=== PATIENT | female | born 1935 | race Caucasian/White ===

== ENCOUNTER 2020-12-09 11:43 | Inpatient (IN) ==
[2020-12-09] MEDS ORDERED: Naloxone 0.4 MG/ML INJ IVP PRN (18:30)
[2020-12-09] MEDS ORDERED: Ondansetron 4 MG/2 ML VIAL IVP PRN (18:30)
[2020-12-09] MEDS: Heparin 25,000UNIT/250ML 1/2NS 25,000 UNIT/250 ML IV.SOLN IVC SCH (19:00)
[2020-12-09] MEDS: Ipratropium 1 PUFF INHALER IH SCH ×2 (20:03→23:17)
[2020-12-09] MEDS ORDERED: *HR* Heparin 5,000 UNIT/ML VIAL IVP PRN ×2 (20:19)
[2020-12-09] MEDS ORDERED: Perflutren Lipid Microsphere 1.3 ML in 0.9 % Sodium Chloride 8.7 ML IVP PRN (20:27)
[2020-12-09 21:15] LABS: Basophils % 0.1 %; Hematocrit 27.7 % (35.3-44.9); Hemoglobin 8.5 g/dL (11.5-15.4); Immature Granulocytes % 0.8 % (0-4); Lymphocytes % 9.9 %; Mean Corpuscular HGB Conc 30.7 g/dL (31.6-35.5); Mean Corpuscular Hemoglobin 28.3 pg (28.0-33.3); Mean Corpuscular Volume 92.3 fL (83.0-100.0); Mean Platelet Volume 10.7 fL (9.4-12.4); Monocytes # 0.3 K/mcL (0.0-1.3); Monocytes % 1.5 %; Neutrophils # 17.8 K/mcL (1.6-8.9); Platelet Count 215 K/mcL (140-400); Red Cell Distribution Width 17.3 % (11.5-14.5); Segmented Neutrophils % 87.7 %; White Blood Count 20.3 K/mcL (4.3-11.1)
[2020-12-09 21:37] LABS: Calcium 8.7 mg/dL (8.6-10.3); Potassium 3.8 mEq/L (3.5-5.1)
[2020-12-09 21:42] LABS: Platelet Estimate Normal (Normal)
[2020-12-09 21:43] LABS: Hypochromasia Present (Not Present)
[2020-12-09 21:48] LABS: Troponin I 2.12 ng/mL (< 0.04)
[2020-12-10] MEDS: Ipratropium 1 PUFF INHALER IH SCH ×6 (04:55→23:53)
[2020-12-10 05:58] LABS: Hemoglobin 8.4 g/dL (11.5-15.4); Immature Granulocytes % 1.2 % (0-4); Lymphocytes # 1.9 K/mcL (0.6-4.6); Lymphocytes % 8.2 %; Mean Corpuscular Hemoglobin 27.5 pg (28.0-33.3); Mean Corpuscular Volume 94.8 fL (83.0-100.0); Mean Platelet Volume 10.8 fL (9.4-12.4); Monocytes # 0.2 K/mcL (0.0-1.3); Neutrophils # 20.2 K/mcL (1.6-8.9); Platelet Count 206 K/mcL (140-400); Red Blood Count 3.06 M/mcL (3.82-4.97); Red Cell Distribution Width 17.4 % (11.5-14.5); Segmented Neutrophils % 89.6 %; White Blood Count 22.6 K/mcL (4.3-11.1)
[2020-12-10 06:44] LABS: Ferritin 143 ng/mL (10-120)
[2020-12-10 07:03] LABS: Alanine Aminotransferase < 3 Units/L (7-52); Albumin 3.3 g/dL (3.5-5.7); Alkaline Phosphatase 66 Units/L (34-104); Aspartate Amino Transferase 16 Units/L (13-39); BUN/Creatinine Ratio 17 (6-26); Bilirubin,Indirect 0.3 mg/dL (0.0-1.0); Bilirubin,Total 0.3 mg/dL (0.3-1.0); Blood Urea Nitrogen 39 mg/dL (8-23); Calcium 8.6 mg/dL (8.6-10.3); Carbon Dioxide 17 mEq/L (23-29); Chloride 108 mEq/L (98-107); Globulin 3.4 g/dL (2.4-3.5); Glucose 134 mg/dL (70-105); Lactate Dehydrogenase 186 Units/L (140-271); Osmolality,Calculated 299 (280-300); Potassium 4.1 mEq/L (3.5-5.1); Sodium 139 mEq/L (136-145); Total Protein 6.7 g/dL (6.4-8.9); eGFR For African Americans 24 (> 60); eGFR For Non-African Americans 20 (> 60)
[2020-12-10] MEDS ORDERED: 0.9 % Sodium Chloride 1,000 ML IVC SCH (08:00)
[2020-12-10] MEDS ORDERED: levoFLOXacin 750 MG/150 ML 750 MG/150 ML BAG IVPB SCH (09:00)
[2020-12-10 09:04] LABS: C-Reactive Protein 152 mg/L (Less than 10); Troponin I 1.21 ng/mL (< 0.04)
[2020-12-10] MEDS: Carbidopa/Levodopa 25/100 TABLET PO SCH ×3 (14:14→21:19)
[2020-12-10] MEDS: Aspirin Enteric Coated 81 MG Tablet PO SCH (17:12)
[2020-12-10] MEDS: Mirtazapine 15 MG TABLET PO SCH (21:18)
[2020-12-10] MEDS: Gabapentin 300 MG CAPSULE PO SCH (21:18)
[2020-12-11] MEDS: Ipratropium 1 PUFF INHALER IH SCH ×5 (04:25→21:00)
[2020-12-11 07:21] LABS: Hematocrit 25.3 % (35.3-44.9); Mean Corpuscular HGB Conc 31.6 g/dL (31.6-35.5); Mean Corpuscular Hemoglobin 28.4 pg (28.0-33.3); Mean Corpuscular Volume 89.7 fL (83.0-100.0); Mean Platelet Volume 10.7 fL (9.4-12.4); Platelet Count 208 K/mcL (140-400); Red Blood Count 2.82 M/mcL (3.82-4.97); Red Cell Distribution Width 17.1 % (11.5-14.5); White Blood Count 16.5 K/mcL (4.3-11.1)
[2020-12-11 07:42] LABS: Potassium 4.2 mEq/L (3.5-5.1)
[2020-12-11] MEDS: polyethylene glycoL 3350 17 GM POWD.PACK PO SCH (08:21)
[2020-12-11] MEDS: Aspirin Enteric Coated 81 MG Tablet PO SCH (08:22)
[2020-12-11] MEDS: allopurinoL 100 MG TABLET PO SCH (08:22)
[2020-12-11] MEDS: Zinc Sulfate 220 MG CAPSULE PO SCH (08:22)
[2020-12-11] MEDS: Ascorbic Acid 500 MG TABLET PO SCH (08:22)
[2020-12-11] MEDS: Cholecalciferol (D-3) 1,000 UNIT (25MCG) TABLET PO SCH (08:22)
[2020-12-11] MEDS: Iron Polysaccharide Complex 150 MG CAPSULE PO SCH (08:22)
[2020-12-11] MEDS: Cyanocobalamin (B-12) 1,000 MCG TABLET PO SCH (08:22)
[2020-12-11] MEDS: Sennosides/Docusate Sodium TABLET PO SCH (08:22)
[2020-12-11] MEDS: Carbidopa/Levodopa 25/100 TABLET PO SCH ×4 (08:22→21:54)
[2020-12-11 09:01] LABS: Calcium 8.5 mg/dL (8.6-10.3)
[2020-12-11] MEDS ORDERED: Sodium Bicarbonate 150 MEQ in Water for inj. (sterile) 1,000 ML IVC SCH (10:45)
[2020-12-11] MEDS: Acetaminophen 325 MG TABLET PO PRN (11:44)
[2020-12-11] MEDS: Mirtazapine 15 MG TABLET PO SCH (21:53)
[2020-12-11] MEDS: Gabapentin 300 MG CAPSULE PO SCH (21:53)
[2020-12-11] MEDS: Heparin 25,000UNIT/250ML 1/2NS 25,000 UNIT/250 ML IV.SOLN IVC SCH (21:54)
[2020-12-12] MEDS: Ipratropium 1 PUFF INHALER IH SCH ×6 (00:08→20:44)
[2020-12-12 06:13] LABS: Hematocrit 24.7 % (35.3-44.9); Hemoglobin 7.8 g/dL (11.5-15.4); Immature Granulocytes % 0.5 % (0-4); Lymphocytes % 10.8 %; Mean Corpuscular HGB Conc 31.6 g/dL (31.6-35.5); Mean Corpuscular Hemoglobin 28.3 pg (28.0-33.3); Mean Corpuscular Volume 89.5 fL (83.0-100.0); Mean Platelet Volume 11.3 fL (9.4-12.4); Monocytes # 0.2 K/mcL (0.0-1.3); Monocytes % 2.5 %; Neutrophils # 8.2 K/mcL (1.6-8.9); Platelet Count 181 K/mcL (140-400); Red Blood Count 2.76 M/mcL (3.82-4.97); Red Cell Distribution Width 17.1 % (11.5-14.5); Segmented Neutrophils % 86.2 %; White Blood Count 9.5 K/mcL (4.3-11.1)
[2020-12-12 06:52] LABS: Alanine Aminotransferase < 3 Units/L (7-52); Albumin 3.1 g/dL (3.5-5.7); Albumin/Globulin Ratio 0.9 (1.1-2.2); Alkaline Phosphatase 57 Units/L (34-104); Aspartate Amino Transferase 38 Units/L (13-39); BUN/Creatinine Ratio 26 (6-26); Bilirubin,Total 0.2 mg/dL (0.3-1.0); Blood Urea Nitrogen 62 mg/dL (8-23); C-Reactive Protein 147 mg/L (Less than 10); Calcium 8.7 mg/dL (8.6-10.3); Carbon Dioxide 23 mEq/L (23-29); Chloride 104 mEq/L (98-107); Ferritin 304 ng/mL (10-120); Globulin 3.4 g/dL (2.4-3.5); Glucose 95 mg/dL (70-105); Lactate Dehydrogenase 284 Units/L (140-271); Osmolality,Calculated 303 (280-300); Potassium 4.2 mEq/L (3.5-5.1); Sodium 138 mEq/L (136-145); Total Protein 6.5 g/dL (6.4-8.9); eGFR For African Americans 23 (> 60); eGFR For Non-African Americans 19 (> 60)
[2020-12-12] MEDS: allopurinoL 100 MG TABLET PO SCH (07:53)
[2020-12-12] MEDS: Zinc Sulfate 220 MG CAPSULE PO SCH (07:53)
[2020-12-12] MEDS: Ascorbic Acid 500 MG TABLET PO SCH (07:53)
[2020-12-12] MEDS: Sennosides/Docusate Sodium TABLET PO SCH (07:53)
[2020-12-12] MEDS: Iron Polysaccharide Complex 150 MG CAPSULE PO SCH (07:53)
[2020-12-12] MEDS: Cyanocobalamin (B-12) 1,000 MCG TABLET PO SCH (07:53)
[2020-12-12] MEDS: Aspirin Enteric Coated 81 MG Tablet PO SCH (07:53)
[2020-12-12] MEDS: Carbidopa/Levodopa 25/100 TABLET PO SCH ×4 (07:53→20:49)
[2020-12-12] MEDS: polyethylene glycoL 3350 17 GM POWD.PACK PO SCH (08:00)
[2020-12-12] MEDS: Cholecalciferol (D-3) 1,000 UNIT (25MCG) TABLET PO SCH (08:01)
[2020-12-12] MEDS ORDERED: levoFLOXacin 500 MG/100 ML 500 MG/100 ML BAG IVPB SCH (09:00)
[2020-12-12] MEDS: Acetaminophen 325 MG TABLET PO PRN (13:08)
[2020-12-12] MEDS: *HR* Heparin 5,000 UNIT/ML VIAL SQ SCH (16:59)
[2020-12-12] MEDS: Furosemide 40 MG/4 ML VIAL IVP SCH (16:59)
[2020-12-12] MEDS: Mirtazapine 15 MG TABLET PO SCH (20:49)
[2020-12-12] MEDS: Gabapentin 300 MG CAPSULE PO SCH (20:49)
[2020-12-13] MEDS: Ipratropium 1 PUFF INHALER IH SCH ×6 (00:05→19:56)
[2020-12-13] MEDS: *HR* Heparin 5,000 UNIT/ML VIAL SQ SCH ×2 (05:36→16:47)
[2020-12-13] MEDS: Dexamethasone Sodium Phos/PF 10 MG/ML VIAL IVP SCH (08:42)
[2020-12-13] MEDS: Zinc Sulfate 220 MG CAPSULE PO SCH (08:43)
[2020-12-13] MEDS: allopurinoL 100 MG TABLET PO SCH (08:43)
[2020-12-13] MEDS: Carbidopa/Levodopa 25/100 TABLET PO SCH ×4 (08:43→21:52)
[2020-12-13] MEDS: Aspirin Enteric Coated 81 MG Tablet PO SCH (08:43)
[2020-12-13] MEDS: Cholecalciferol (D-3) 1,000 UNIT (25MCG) TABLET PO SCH (08:44)
[2020-12-13] MEDS: Sennosides/Docusate Sodium TABLET PO SCH (08:44)
[2020-12-13] MEDS: Iron Polysaccharide Complex 150 MG CAPSULE PO SCH (08:44)
[2020-12-13] MEDS: Ascorbic Acid 500 MG TABLET PO SCH (08:44)
[2020-12-13] MEDS: polyethylene glycoL 3350 17 GM POWD.PACK PO SCH (08:45)
[2020-12-13] MEDS: Cyanocobalamin (B-12) 1,000 MCG TABLET PO SCH (08:45)
[2020-12-13] MEDS: Furosemide 40 MG/4 ML VIAL IVP SCH (08:48)
[2020-12-13 09:55] LABS: Immature Granulocytes % 0.6 % (0-4); Lymphocytes # 1.3 K/mcL (0.6-4.6); Lymphocytes % 6.6 %; Mean Corpuscular HGB Conc 31.3 g/dL (31.6-35.5); Mean Corpuscular Hemoglobin 28.1 pg (28.0-33.3); Mean Corpuscular Volume 89.8 fL (83.0-100.0); Mean Platelet Volume 11.3 fL (9.4-12.4); Monocytes # 0.4 K/mcL (0.0-1.3); Neutrophils # 17.5 K/mcL (1.6-8.9); Platelet Count 265 K/mcL (140-400); Red Blood Count 3.34 M/mcL (3.82-4.97); Red Cell Distribution Width 17.1 % (11.5-14.5); Segmented Neutrophils % 90.8 %
[2020-12-13 10:14] LABS: Hemoglobin 9.4 g/dL (11.5-15.4); White Blood Count 19.3 K/mcL (4.3-11.1)
[2020-12-13 10:16] LABS: Calcium 8.5 mg/dL (8.6-10.3); Potassium 4.1 mEq/L (3.5-5.1)
[2020-12-13] MEDS ORDERED: Cefepime HCl 1,000 MG in Water for inj. (sterile) 10 ML IVP SCH (12:00)
[2020-12-13] MEDS: *HR* LORazepam 2 MG/ML VIAL IVP PRN (12:58)
[2020-12-13] MEDS: Mirtazapine 15 MG TABLET PO SCH (21:51)
[2020-12-13] MEDS: Gabapentin 300 MG CAPSULE PO SCH (21:51)
[2020-12-14] MEDS: Ipratropium 1 PUFF INHALER IH SCH ×7 (00:24→23:08)
[2020-12-14 03:47] LABS: Hemoglobin 8.6 g/dL (11.5-15.4); Mean Corpuscular HGB Conc 29.7 g/dL (31.6-35.5); Mean Corpuscular Hemoglobin 27.4 pg (28.0-33.3); Mean Corpuscular Volume 92.4 fL (83.0-100.0); Mean Platelet Volume 10.6 fL (9.4-12.4); Platelet Count 212 K/mcL (140-400); Red Blood Count 3.14 M/mcL (3.82-4.97); Red Cell Distribution Width 17.1 % (11.5-14.5); White Blood Count 16.3 K/mcL (4.3-11.1)
[2020-12-14 04:13] LABS: Calcium 8.8 mg/dL (8.6-10.3); Potassium 3.8 mEq/L (3.5-5.1)
[2020-12-14] MEDS: Morphine Sulfate Oral CONC 10 MG/0.5 ML ORAL.SYG SL PRN ×3 (04:44→20:32)
[2020-12-14] MEDS: *HR* Heparin 5,000 UNIT/ML VIAL SQ SCH ×2 (06:08→17:34)
[2020-12-14] MEDS: Dexamethasone Sodium Phos/PF 10 MG/ML VIAL IVP SCH (07:45)
[2020-12-14] MEDS: Iron Polysaccharide Complex 150 MG CAPSULE PO SCH (07:45)
[2020-12-14] MEDS: Aspirin Enteric Coated 81 MG Tablet PO SCH (07:45)
[2020-12-14] MEDS: Zinc Sulfate 220 MG CAPSULE PO SCH (07:45)
[2020-12-14] MEDS: Carbidopa/Levodopa 25/100 TABLET PO SCH ×4 (07:45→20:41)
[2020-12-14] MEDS: Ascorbic Acid 500 MG TABLET PO SCH (07:45)
[2020-12-14] MEDS: allopurinoL 100 MG TABLET PO SCH (07:45)
[2020-12-14] MEDS: Sennosides/Docusate Sodium TABLET PO SCH (07:45)
[2020-12-14] MEDS: polyethylene glycoL 3350 17 GM POWD.PACK PO SCH (07:46)
[2020-12-14] MEDS: Cyanocobalamin (B-12) 1,000 MCG TABLET PO SCH (07:46)
[2020-12-14] MEDS: Cholecalciferol (D-3) 1,000 UNIT (25MCG) TABLET PO SCH (07:46)
[2020-12-14] MEDS: *HR* LORazepam 2 MG/ML VIAL IVP PRN ×2 (07:47→18:39)
[2020-12-14] MEDS: Cefepime HCl 1,000 MG in Water for inj. (sterile) 10 ML IVP SCH (12:46)
[2020-12-14] MEDS: Mirtazapine 15 MG TABLET PO SCH (20:41)
[2020-12-14] MEDS ORDERED: Gabapentin 100 MG CAPSULE PO SCH (21:00)
[2020-12-15] MEDS: *HR* LORazepam 2 MG/ML VIAL IVP PRN ×4 (00:39→14:31)
[2020-12-15] MEDS: Morphine Sulfate Oral CONC 10 MG/0.5 ML ORAL.SYG SL PRN (03:27)
[2020-12-15] MEDS: Ipratropium 1 PUFF INHALER IH SCH ×3 (03:43→11:35)
[2020-12-15] MEDS: *HR* Heparin 5,000 UNIT/ML VIAL SQ SCH (06:32)
[2020-12-15 06:50] VITALS: TEMP 97.4
[2020-12-15] MEDS: Iron Polysaccharide Complex 150 MG CAPSULE PO SCH (07:40)
[2020-12-15] MEDS: Aspirin Enteric Coated 81 MG Tablet PO SCH (07:40)
[2020-12-15] MEDS: polyethylene glycoL 3350 17 GM POWD.PACK PO SCH (07:40)
[2020-12-15] MEDS: Carbidopa/Levodopa 25/100 TABLET PO SCH ×2 (07:41→11:54)
[2020-12-15] MEDS: Cholecalciferol (D-3) 1,000 UNIT (25MCG) TABLET PO SCH (07:41)
[2020-12-15] MEDS: Cyanocobalamin (B-12) 1,000 MCG TABLET PO SCH (07:41)
[2020-12-15] MEDS: Ascorbic Acid 500 MG TABLET PO SCH (07:41)
[2020-12-15] MEDS: allopurinoL 100 MG TABLET PO SCH (07:41)
[2020-12-15] MEDS: Sennosides/Docusate Sodium TABLET PO SCH (07:41)
[2020-12-15] MEDS: Zinc Sulfate 220 MG CAPSULE PO SCH (07:41)
[2020-12-15 08:11] LABS: Calcium 8.8 mg/dL (8.6-10.3); Potassium 4.4 mEq/L (3.5-5.1)
[2020-12-15 08:14] LABS: Hematocrit 30.3 % (35.3-44.9); Mean Corpuscular HGB Conc 29.7 g/dL (31.6-35.5); Mean Corpuscular Hemoglobin 27.8 pg (28.0-33.3); Mean Corpuscular Volume 93.5 fL (83.0-100.0); Mean Platelet Volume 11.5 fL (9.4-12.4); Platelet Count 229 K/mcL (140-400); Red Blood Count 3.24 M/mcL (3.82-4.97); Red Cell Distribution Width 17.3 % (11.5-14.5); White Blood Count 24.4 K/mcL (4.3-11.1)
[2020-12-15] MEDS: Dexamethasone Sodium Phos/PF 10 MG/ML VIAL IVP SCH (08:18)
[2020-12-15] MEDS ORDERED: Morphine Sulfate Oral CONC 10 MG/0.5 ML ORAL.SYG SL PRN (11:41)
[2020-12-15] MEDS: Cefepime HCl 1,000 MG in Water for inj. (sterile) 10 ML IVP SCH (12:01)
[2020-12-15 12:11] VITALS: BP 162/81
[2020-12-15] MEDS: Morphine Sulfate 2 MG/ML SYRINGE IVP PRN ×4 (14:31→23:57)
[2020-12-15] MEDS ORDERED: Atropine 1% Opth Drops 100 DROP/5 ML BOTTLE SL PRN (17:00)
[2020-12-15] MEDS ORDERED: Morphine Sulfate 2 MG/ML SYRINGE IVP PRN (17:00)
[2020-12-15] MEDS: Atropine 1% Opth Drops 100 DROP/5 ML BOTTLE SL PRN (18:32)
[2020-12-16] MEDS: Morphine Sulfate 2 MG/ML SYRINGE IVP PRN (04:32)
[2020-12-16] MEDS: Atropine 1% Opth Drops 100 DROP/5 ML BOTTLE SL PRN (04:39)
[2020-12-16 05:49] VITALS: O2SAT 55
[2020-12-16 05:50] VITALS: PULSE 104
[2020-12-16] MEDS ORDERED: *HR* LORazepam 2 MG/ML VIAL IVP PRN (09:16)
[2020-12-16] MEDS ORDERED: Morphine Sulfate 2 MG/ML SYRINGE IVP PRN (09:20)
[2020-12-16] MEDS ORDERED: Morphine Sulfate Oral CONC 10 MG/0.5 ML ORAL.SYG SL SCH (12:00)
== END 2020-12-16 10:12 | disposition expired | DRG 871 ==
LOC: 2NENU → SUATTDRO 12-10 11:25
PROVIDERS: ADMIT Family Medicine; ATTEND Internal Medicine